=== PATIENT | female | born 1980 | race Caucasian/White ===

== ENCOUNTER → 2022-06-12 | Outpatient (CLI) | payer OTHER ==
[2022-06-12 15:59] LABS: EOSINOPHILS % (AUTO) 2.8 % (1.0-6.0); HEMATOCRIT 40.4 % (36-46); HEMOGLOBIN 13.5 g/dL (12.0-16.0); LYMPHOCYTES # (AUTO) 1.5 K/uL (1.0-4.8); LYMPHOCYTES % (AUTO) 32.1 % (22.0-44.0); MEAN CORPUSCULAR HEMOGLOBIN 30.5 pg (26.0-34.0); MEAN CORPUSCULAR HGB CONC 33.4 G/dL (31.0-37.0); MEAN CORPUSCULAR VOLUME 91 fL (80-100); MONOCYTES # (AUTO) 0.4 K/uL (0.1-1.0); MONOCYTES % (AUTO) 8.9 % (2.0-9.0); NEUTROPHILS # (AUTO) 2.5 K/uL (1.8-7.7); NEUTROPHILS % (AUTO) 55.2 % (40.0-70.0); PLATELET COUNT (AUTO) 207 K/uL (150-450); RED BLOOD CELL COUNT(AUTO) 4.43 MIL/uL (4.00-5.20); RED CELL DISTRIBUTION WIDTH 13.6 % (11.5-14.5)
[2022-06-12 16:23] LABS: FREE T4 (FREE THYROXINE) 0.83 ng/dL (0.76-1.46); THYROID STIMULATING HORMONE 2.42 uIU/mL (0.36-3.74)
== END | disposition home or self-care (01) ==
LOC: MSR 13:54
PROVIDERS: ATTEND Chiropractor
DX: T14.8XXA Other injury of unspecified body region, initial encounter (principal); M47.814 Spondylosis without myelopathy or radiculopathy, thoracic region; M21.921 Unspecified acquired deformity of right upper arm; M47.818 Spondylosis without myelopathy or radiculopathy, sacral and sacrococcygeal region; E03.9 Hypothyroidism, unspecified; B00.9 Herpesviral infection, unspecified; I34.1 Nonrheumatic mitral (valve) prolapse; R07.9 Chest pain, unspecified; Y92.89 Other specified places as the place of occurrence of the external cause
CPT/HCPCS: 71046; 72100; 84439; 84443; 84481; 85025; 86695; 86696; 93306; 36415-L1; 36415-TC